=== PATIENT | female | born 1975 | race Caucasian/White ===

== ENCOUNTER 2019-09-17 13:38 | Outpatient (CLI) | payer OTHER ==
[~2019-09-17 13:38] MED LIST: PROVENTIL0.5 ML/2.5 IH; TUSSI PRES-B L120 M1 PO; ZITHROMAX TRI-500 MG PO
== END 2019-09-17 13:41 | disposition home or self-care (01) ==
LOC: LAB 13:38
DX: Z20.828 Contact with and (suspected) exposure to other viral communicable diseases (principal)